=== PATIENT | female | born 1950 | race Hispanic/Latino ===

== ENCOUNTER → 2016-10-08 | Outpatient (CLI) | payer OTHER ==
[~2016-10-08] MED LIST: *PREMTA OR; /AUGM875TA PO; ANTI12.5 PO; CALTRATE OR; CERTIRIZINE PO; CETI10TA OR; CONRAY-43 43% 50ML VIAL (Q9960) As Ordered ONE; ESTR625TA PO; GLUC500T3 OR; HYDR25TA6 OR; HYDR25TA7 OR; IBUP800T OR; LISI10TA4 OR; LISI10TA4 PO; NASONEX; OMEP20TA7 OR; PAIN325T OR; PROV2.5T PO; PROZ20CA OR; SIMV20TA2 OR; [UNRECOGNIZED DRUG - OTHER]; caltrate PO
--- NOTE | 2016-10-08 18:16 | REP ---
RIGHT SHOULDER ARTHROGRAM: Procedure for MRI arthrogram. The patient was referred for MR arthrogram of the right shoulder. After initial MR images were performed, informed consent was obtained for the arthrogram procedure. Under sterile conditions and after satisfactory administration of local anesthesia, using fluoroscopic guidance, a 22-gauge spinal needle was placed into the right glenohumeral joint. Injection of a tiny amount of radiographic contrast confirms needle tip placement in the joint. Then a mixture of 20 mL of normal saline and 0.15 mL of gadolinium is injected for a total of 12 mL. The needle was removed and hemostasis obtained with no immediate complications. Further MR imaging was then performed. Signed by Andrew Ferreira MD 10/08/2016 06:32 P
--- NOTE | 2016-10-08 18:20 | REP ---
MRI RIGHT SHOULDER ARTHROGRAM WITHOUT WITH CONTRAST: 10/08/2016: Clinical history: Shoulder pain, chronic. Rule out rotator cuff tear. Technique: Axial fat suppressed T2, coronal T1 and fat-suppressed T2 with this gadolinium arthrogram injection by my colleague, Dr. Ferreira followed by fat suppressed T1 coronal and axial, fat suppressed T2 coronal and sagittal and an axial PD sequence provided. Comparison: Outside x-ray 12/11/2015. Findings: AC joint shows large spurs superiorly and small inferiorly. This abuts and slightly indents the musculotendinous junction of the rotator cuff. There is peripheral acromial spur. There is trace amount of subacromial and subdeltoid bursal fluid on the pre-arthrogram images. The coracoclavicular and the coracohumeral ligaments are intact. On the arthrogram injection images there is significant arthrogram contrast transiting the rotator cuff into the sub acromial and subdeltoid bursa rotator cuff tear is seen distally near its insertion. No footprint or a full-thickness tear of the anterior fibers with the posterior fibers showing significant tendinosis tendinopathy and undersurface high-grade partial tear. I do not see full retraction of the tendon and only mild atrophy of the muscle. The subscapularis muscle and tendon are grossly intact. The infraspinatus and teres minor tendons and muscles intact. Some hyperintensity and T2 precontrast signal suggest some significant synovitis/bursitis about the shoulder. I do not see a fracture. There is a small subchondral cyst greater tuberosity humeral head likely related to posterior impingement. Contrast extends in the subcoracoid bursa. The bony coracoid was intact. The glenoid labrum was grossly intact as well. Impression: 1. Severe tendinosis tendinopathy of the supraspinatus on the precontrast images with trace subacromial subdeltoid bursal fluid with large volume of contrast from the humeral joint arthrogram injection extends into those subacromial and subdeltoid bursal spaces. Through a partial tear, full-thickness anterior fibers of the supraspinatus tendon near its insertional footprint with a gap of a 7 mm. The more posterior fibers show significant tendinosis, tendinopathy and partial undersurface tear. Some atrophy of that muscle noted but without retraction of the tendon. 2. AC joint hypertrophy and more superior than inferior but with a small indentation musculotendinous junction rotator cuff from the inferior spur. 3. Some mild tendinopathy tendinosis of the subscapularis without a tear. The infraspinatus and teres minor tendons intact. The coracoclavicular and coracohumeral ligaments are intact. 4. The biceps tendon is seated in its groove and the labrum and biceps labrum and biceps labral complex are grossly intact. Signed by Moiz Nevarez MD 10/11/2016 08:19 A
== END ==
LOC: M RADPRO 06:50
DX: M65.811 Other synovitis and tenosynovitis, right shoulder (principal); M75.111 Incomplete rotator cuff tear or rupture of right shoulder, not specified as traumatic
CPT/HCPCS: 23350; 73223; 77002; A9576; Q9960

== ENCOUNTER 2017-01-26 05:42 | Inpatient (IN) | payer OTHER ==
[~2017-01-26] VITALS: Ht 154.9 cm; Wt 73.5 kg
[~2017-01-26 05:42] MED LIST changes: +ACEP325S PO; -CONRAY-43 43% 50ML VIAL (Q9960) As Ordered ONE; +GLUC1CAP10 PO; +HYZA50TA2 PO; +OMEP10CASR PO; +RANI1TAB38 PO; +SUCR1TA PO; +VITA100037 PO; +VITA100L PO; +ZYRT10CA PO
[2017-01-26] MEDS ORDERED: LR 1,000 ML IV SCH ×2 (06:00→11:45)
[2017-01-26] MEDS ORDERED: ACET-654 PO (06:29)
[2017-01-26] MEDS ORDERED: MIDAZOLAM INJ 2 MG/2 ML VIAL (J2250) As Ordered ONE ×3 (07:11→08:11)
[2017-01-26] MEDS ORDERED: fentaNYL 100 MCG/2 ML INJECTION (J3010) As Ordered ONE ×2 (07:11→07:17)
[2017-01-26] MEDS ORDERED: PROPOFOL 200 MG/20 ML VIAL As Ordered ONE ×2 (07:17→09:59)
[2017-01-26] MEDS ORDERED: LIDOCAINE 2% INJ 100 MG/5 ML SDV (FOR ANES.) As Ordered ONE (07:17)
[2017-01-26] MEDS ORDERED: TRANEXAMIC ACID 100 MG/ML 10ML VIAL As Ordered ONE (07:19)
[2017-01-26] MEDS ORDERED: BUPIVACAINE LIPOSOME/PF 1.3% 20 ML VIAL (13.3MG/ML)(EXPAREL) As Ordered ONE (07:19)
[2017-01-26] MEDS ORDERED: ceFAZolin 1GM INJ (J0690) As Ordered ONE (07:19)
[2017-01-26] MEDS ORDERED: MIDAZOLAM INJ 2 MG/2 ML VIAL (J2250) IV ONE (08:15)
[2017-01-26] MEDS ORDERED: fentaNYL 100 MCG/2 ML INJECTION (J3010) IV ONE (08:15)
[2017-01-26] MEDS ORDERED: ONDANSETRON 4MG/2ML VIAL (J2405) As Ordered ONE (08:46)
[2017-01-26] MEDS ORDERED: dexameTHASONE 4 MG/ML 1ML VIAL (J1100) As Ordered ONE (08:46)
[2017-01-26] MEDS ORDERED: KETOROLAC 30 MG/ML VIAL (J1885) As Ordered ONE (11:03)
[2017-01-26] MEDS ORDERED: FLEET ENEMA PR PRN (11:30)
[2017-01-26] MEDS ORDERED: ACETAMINOPHEN TAB 650MG DOSE (2X325MG) PO PRN (11:30)
[2017-01-26] MEDS ORDERED: PERCOCET 5MG/325MG TAB PO PRN ×2 (11:30→11:45)
[2017-01-26] MEDS ORDERED: METOCLOPRAMIDE INJ 10MG/2ML VIAL (J2765) IV PRN (11:45)
[2017-01-26] MEDS ORDERED: MORPHINE 2 MG/ML 1ML SYRINGE IV PRN (11:45)
[2017-01-26] MEDS ORDERED: ONDANSETRON 4MG/2ML VIAL (J2405) IV PRN (11:45)
[2017-01-26] MEDS: fentaNYL 100 MCG/2 ML INJECTION (J3010) IV PRN ×2 (11:53→11:58)
--- NOTE | 2017-01-26 12:22 | REP ---
Left knee two views portable study: There is a total knee arthroplasty with the components tightly applied and in satisfactory positions alignment. There are no radiopaque foreign bodies. Signed by Andrew Burns MD 01/26/2017 12:14 P
[2017-01-26] MEDS: PERCOCET 5MG/325MG TAB PO PRN ×2 (14:24→20:42)
--- NOTE | 2017-01-26 15:19 | RO ---
DATE OF PROCEDURE: 01/26/2017 PREPROCEDURE DIAGNOSIS: Left knee osteoarthritis. POSTPROCEDURE DIAGNOSIS: Left knee osteoarthritis. PROCEDURE PERFORMED: Left total knee arthroplasty. ANESTHESIA: Adductor canal block/single shot spinal SURGEON: Dr. Aleksey Harmon DRY HOUSE TENDER: MARCELA Dangelo ANTIBIOTICS: 2 gram Ancef given within one hour of incision. IMPLANTS USED: DePuy Sigma PFC, size 3 CR femur, size 2.5 fixed bearing tibia with 12.5 mm polyethylene with 32mm x 8mm patellar polyethelyene. DEEP VEIN THROMBOSIS PROPHYLAXIS: Sequential compression device (SCD) on nonoperative extremity. TOTAL TOURNIQUET TIME: 109 minutes at 250 mmHg, left thigh. MATERIALS SENT TO LAB: None. COMPLICATIONS: None. INDICATION FOR PROCEDURE: Chidi Khalil is a 66-year-old female with left knee osteoarthritis with varus deformity. The patient had previously pursued nonoperative treatment to include activity modification, maintenance of a healthy body weight, corticosteroid injections, medication therapy and exercise therapy and continued to have activity limiting knee pain despite all of these nonoperative measures. I discussed with the patient the risks, benefits, indications and alternatives of operative versus continued nonoperative management for knee osteoarthritis. The patient elected to proceed with left total knee arthroplasty. Informed consent was obtained. INTRAOPERATIVE FINDINGS: There was significant tricompartmental osteoarthritis of the left knee. The knee was stable after implant placement. DESCRIPTION OF PROCEDURE: The patient was positively identified in the preop holding area where the surgical site was marked. She was then given an adductor canal nerve block by the anesthesia service for postoperative pain control. She was then brought to the operating room where she was placed under spinal anesthesia and sedation. She was prepped and draped in the usual sterile fashion. A final time-out was performed. I made a 15 cm incision in the midline of the knee. I dissected through skin and subcutaneous tissue and identified the retinaculum and identified the quadriceps tendon and performed a medial parapatellar arthrotomy dissecting through the retinaculum and the anterior horn of the medial meniscus. After performing the medial parapatellar arthrotomy, I then performed a limited synovectomy of the anterior distal femur to aid in implant sizing. I then performed a medial release of the soft tissue of the tibia, finishing medial release with a 1 inch curved osteotome around the proximal and medial border of the tibia, protecting the MCL. I then excised part of the patellar fat pad and released the anterior horn of the lateral meniscus. I then brought the knee into flexion, everted the patella, and then resected the ACL. I then placed medial and lateral retractors to protect the MCL and LCL, respectively. I then drilled for the intramedullary drill guide for the femur using the standard drill. I then placed the intramedullary guide for the distal femoral cutting block. I confirmed that it was set to left knee 5 degrees valgus and a 10 mm distal cut. The block was then set flush to the distal femur and I then performed a standard distal femoral cut, confirming adequate depth. The distal femoral cutting block was then removed. I then placed the posterior referencing sizing guide onto the femur and measured a size 3. I then removed the sizing guide and placed my 4-in-1 cutting block for size 3 and then performed anterior , posterior, and chamfer cuts for the femur, maintaining adequate retraction of the MCL and LCL with Homans and Z retractors to protect the medial and lateral structures, respectively. I then placed the PCL retractor to the posterior tibia and then brought the tibia anteriorly and performed a recession of the PCL but keeping it intact, brought the tibia forward, and placed my extramedullary tibial guide in place for the tibial cut. I planned for a 4 mm cut off of the medial side. I then pinned the tibial block in place. I checked the alignment with an extramedullary drop herve prior to making the tibial cut. I then made the tibial cut, noting to be perpendicular to the long axis of the tibia with adequate posterior slope. At this point, I then checked the flexion gap. I removed the medial and lateral menisci and removed osteophytes from the posterior femur on the medial and lateral side. I noted the flexion gap was balanced. I then brought the knee into extension, checked the extension gap and noted it to also be balanced. I sized a polyethylene to a 12.5 mm thickness, noting excellent stability in flexion, extension and mid flexion. I then placed the tibial tray and polyethylene and floated the tibial tray and brought the knee through range of motion to identify optimal placement of the tibial component. The site was then marked. At this point, I set the rotation for the tibial tray, sized it to a 2.5. I then proceeded to the patellar cut. The patella was measured to approximately 25 mm. A 9 mm patellar resection was made. I then sized the patella to a 32 mm, which corresponded to an 8 mm polyethyelene thickness. The residual patella measured 15 mm in thickness, which confirmed that there would not be overstuffing the patella with an 8mm poly. Patellar trial was placed. Then using a no thumbs technique, the knee was brought in through a range of motion, noting excellent tracking of the patella. The trial polyethylene was removed. Femoral trial was removed after drilling the lug holes for the final implant. I then prepared the proximal tibia by putting the trial in place and drilling for the keel. After preparation of the tibia, all the trial components were removed. The knee was thoroughly irrigated with normal saline to clear any blood from the cancellus bone. Afterwards, the final tibial implant was implanted, followed by the polyethylene. This was then followed by implant of the femoral component, and the patellar component. All excess cement was cleared from the periphery of the components. Any residual osteophytes were removed. The knee was brought into extension to allow the cement to cure. After curing of the cement, I then placed 2 grams of topical TXA into the wound, followed by 10 mL of Exparel into the periosteum, the femur and distal tibia. I then closed the retinaculum with some interrupted #0 Vicryl suture followed by a STRATAFIX barbed suture to close the retinaculum. It was noted to have water tight closure with closure done with the knee in approximately 45 degrees of flexion. The tourniquet was let down at this point, 109 minutes. Noted excellent hemostasis. I then closed the superficial fascia with #2-0 Vicryl interrupted subcutaneous sutures and then running #4-0 Monocryl for the skin, followed by Dermabond Prineo dressing for the skin. Sterile dressings were applied after the Dermabond dried. This ended the procedure. I was present and scrubbed in for all portions of the case. POSTOPERATIVE PLAN: The patient will have postoperative x-rays. She will be admitted to the hospital for postoperative physical therapy (PT). She will be weight bearing as tolerated. She will discharge home when all criteria met. CLAUDETTE
[2017-01-26] MEDS: ceFAZolin SOD 1 GM in D5W MINI-BAG PLUS 50 ML IV SCH ×2 (16:28→23:47)
[2017-01-26] MEDS: KETOROLAC 30 MG/ML VIAL (J1885) IV SCH ×2 (16:28→23:48)
[2017-01-26] MEDS ORDERED: KETOROLAC 30 MG/ML VIAL (J1885) IV SCH (17:00)
[2017-01-26 22:00] VITALS: BP 121/72
[2017-01-27] MEDS: KETOROLAC 30 MG/ML VIAL (J1885) IV SCH ×2 (04:25→10:39)
[2017-01-27 06:00] VITALS: BP 112/57
[2017-01-27 07:38] LABS: MEAN CORPUSCULAR HEMOGLOBIN 30.2 pg (27.0-33.0); MEAN CORPUSCULAR HGB CONC 33.6 g/dl (32.0-36.5); MEAN CORPUSCULAR VOLUME 89.7 fl (80.0-96.0); RED CELL DISTRIBUTION WIDTH 12.2 % (11.5-14.5)
[2017-01-27 07:45] LABS: INR 1.06
[2017-01-27] MEDS: ceFAZolin SOD 1 GM in D5W MINI-BAG PLUS 50 ML IV SCH (07:48)
[2017-01-27] MEDS: PERCOCET 5MG/325MG TAB PO PRN (07:54)
[2017-01-27] MEDS: OMEPRAZOLE 20 MG CAP PO SCH (07:55)
[2017-01-27] MEDS: ENOXAPARIN 40 MG/0.4 ML SYRINGE (J1650) SC SCH (07:55)
[2017-01-27] MEDS: MIRALAX *UNIT DOSE* 17GM PACKET PO SCH (09:00)
[2017-01-27] MEDS ORDERED: dexameTHASONE 10 MG/1 ML VIAL PRES.FREE (J1100) ONE (09:44)
[2017-01-27] MEDS ORDERED: ROPIvacaine 0.5% 30 ML INJECTION (J2795) ONE (09:44)
[2017-01-27] MEDS: hydroCHLOROthiazide 12.5 MG CAPSULE PO SCH (10:38)
[2017-01-27] MEDS: LOSARTAN 50 MG TAB PO SCH (10:39)
[2017-01-27] MEDS: MOM 30ML SUSPENSION UDC PO SCH (10:39)
[2017-01-27] MEDS: ONDANSETRON 4 MG ORAL DISINTEGRATING TAB (S0181) PO PRN ×2 (14:14→19:56)
[2017-01-27] MEDS: oxyCODONE 5MG TAB PO PRN (18:15)
[2017-01-27] MEDS: traMADol 50 MG TAB PO PRN (19:56)
[2017-01-27] MEDS: CelecoXIB (CeleBREX) 100 MG CAP PO SCH (19:57)
[2017-01-27] MEDS ORDERED: traMADol 50 MG TAB PO PRN (20:00)
[2017-01-27 22:00] VITALS: BP 152/76
[2017-01-28] MEDS: oxyCODONE 5MG TAB PO PRN ×2 (00:16→08:25)
[2017-01-28] MEDS: traMADol 50 MG TAB PO PRN (04:53)
[2017-01-28 06:00] VITALS: BP 144/71
[2017-01-28 08:24] VITALS: BP 144/71
[2017-01-28] MEDS: MIRALAX *UNIT DOSE* 17GM PACKET PO SCH (08:24)
[2017-01-28] MEDS: ENOXAPARIN 40 MG/0.4 ML SYRINGE (J1650) SC SCH (08:24)
[2017-01-28] MEDS: OMEPRAZOLE 20 MG CAP PO SCH (08:24)
[2017-01-28] MEDS: LOSARTAN 50 MG TAB PO SCH (08:24)
[2017-01-28] MEDS: MOM 30ML SUSPENSION UDC PO SCH (08:24)
[2017-01-28] MEDS: CelecoXIB (CeleBREX) 100 MG CAP PO SCH (08:25)
[2017-01-28] MEDS: hydroCHLOROthiazide 12.5 MG CAPSULE PO SCH (08:25)
--- NOTE | 2017-02-03 19:30 | DSES ---
DATE OF ADMISSION: 01/26/2017 DATE OF DISCHARGE: 01/28/2017 ATTENDING PHYSICIAN: Dr. Harmon. ADMITTING DIAGNOSIS: Left knee degenerative arthritis. OTHER DIAGNOSES: 1. Hypertension. 2. Hyperlipidemia. 3. Gastroesophageal reflux disease. 4. Asthma. 5. Obesity. 6. Depression. DISCHARGE DIAGNOSIS: Left knee degenerative osteoarthritis status post left total knee arthroplasty. HISTORY OF PRESENT ILLNESS: Patient is a 66-year-old female with continuing left knee pain and stiffness. She failed to improve with conservative measures, so she consented for an elective left total knee arthroplasty with Dr. Harmon. OPERATION PERFORMED: Left total knee arthroplasty. HOSPITAL COURSE: The patient underwent a left total knee arthroplasty under spinal anesthesia which was uneventful. Her hospital course was without complication and she was up with physical therapy per their protocol, weightbearing as tolerated on the left lower extremity. She was discharged on oral pain medications and will resume her preoperative medications and diet. She will take Coumadin and use her thromboembolic deterrent stockings for 30 days postoperatively to prevent deep venous thrombosis. She will followup in our office in approximately 12-14 days for a wound check and staple removal. She is encouraged to contact our office sooner if there is any increased pain, drainage , bleeding, redness, numbness or tingling in her leg, fever greater than 101 degrees, or any other concerns. Please see her medical record for additional details. CLAUDETTE
== END 2017-01-28 13:07 | disposition home or self-care (01) | DRG 470 ==
LOC: UNDOADMIN 05:42 → M OR 05:42 → EDSTATUS 09:15 → M MS5PR 12:25
PROVIDERS: ADMIT Orthopaedic Surgery; ATTEND Orthopaedic Surgery
PROC: 0SRD0J9 Replacement of Left Knee Joint with Synthetic Substitute, Cemented, Open Approach (ICD-10-PCS; principal; 2017-01-26 07:30)
DX: M17.12 Unilateral primary osteoarthritis, left knee (principal)

== ENCOUNTER → 2017-04-20 | Outpatient (CLI) | payer OTHER ==
[~2017-04-20] MED LIST changes: +ACET1TAB17 PO; -VITA100037 PO; +VITA100067 PO
--- NOTE | 2017-04-20 13:32 | REPMRS ---
Patient History The patient states she has not had a clinical breast exam in over a year. Patient is postmenopausal. Family history of ovarian cancer in sister under age 50 and colorectal cancer in paternal cousin at age 50 or over. Digital Woman Screen Mammo: April 20, 2017 - Exam #: [id number] Bilateral CC and MLO view(s) were taken. Technologist: Indira Lopez, Technologist Prior study comparison: April 19, 2016, digital woman screen mammo performed at [facility]. April 16, 2015, digital woman screen mammo performed at [facility]. April 15, 2014, digital woman screen mammo performed at [facility]. FINDINGS: There are scattered fibroglandular densities. There has been no change in the appearance of the mammogram from the prior studies. There is a mild amount of scattered fibroglandular density which is fairly symmetric. There is no interval development of dominant mass, architectural distortion, or clustered microcalcification suggestive of malignancy. ASSESSMENT: BI-RADS/ACR category 1 mammogram. Negative. Recommendation Routine screening mammogram in 1 year (for women over age 40). This mammogram was interpreted with the aid of an FDA-approved computer-aided dectection system. Electronically Signed By: Conrad Henley MD 04/20/17 [id number]
== END ==
LOC: M WHC 12:46
PROVIDERS: ATTEND Family Medicine
DX: Z12.31 Encounter for screening mammogram for malignant neoplasm of breast (principal); Z78.0 Asymptomatic menopausal state

== ENCOUNTER 2017-05-06 08:06 | Outpatient (CLI) | payer OTHER ==
[~2017-05-06] VITALS: Ht 154.9 cm; Wt 70.8 kg
[2017-05-06] MEDS ORDERED: NS 1,000 ML IV ONE (09:00)
[2017-05-06] MEDS ORDERED: PROPOFOL 200 MG/20 ML VIAL As Ordered ONE (09:26)
--- NOTE | 2017-05-06 09:48 | ROOR ---
Patient Name: Chidi Khalil Procedure Date: 05/06/2017 9:25 AM Date of : 1950 Age: 66 Room: [facility] Gender: Female Note Status: Finalized Procedure: Colonoscopy Indications: High risk colon cancer surveillance: Personal history of colonic polyps, Last colonoscopy: March 2014 Providers: Dick OSBORNE MD Referring MD: CARLY CARROLL MD Requesting Provider: Medicines: Monitored Anesthesia Care Complications: No immediate complications. Procedure: Pre-Anesthesia Assessment: - The heart rate, respiratory rate, oxygen saturations, blood pressure, adequacy of pulmonary ventilation, and response to care were monitored throughout the procedure. The Colonoscope was introduced through the anus and advanced to the cecum, identified by appendiceal orifice and ileocecal valve. The colonoscopy was performed without difficulty. The patient tolerated the procedure well. The quality of the bowel preparation was good. Findings: The perianal and digital rectal examinations were normal. Four sessile polyps were found in the hepatic flexure and distal ascending colon. The polyps were 3 to 4 mm in size. These polyps were removed with a cold snare. Resection and retrieval were complete. Multiple small-mouthed diverticula were found in the sigmoid colon. There was evidence of diverticular spasm. Small Internal Hemorrhoids. The exam was otherwise without abnormality on direct and retroflexion views. Impression: - Four 3 to 4 mm polyps at the hepatic flexure and in the distal ascending colon, removed with a cold snare. Resected and retrieved. - Moderate diverticulosis in the sigmoid colon. There was evidence of diverticular spasm. - Small Internal Hemorrhoids. - The examination was otherwise normal on direct and retroflexion views. Recommendation: - Await pathology results. - If the pathology report reveals adenomatous tissue, then repeat the colonoscopy for surveillance in 3 years. - If the pathology report indicates hyperplastic polyp, then repeat colonoscopy for surveillance in 5 years. - Telephone endoscopist for pathology results in 2 weeks. Dick Osborne MD Dick OSBORNE MD 05/06/2017 9:48:34 AM This report has been signed electronically. Number of Addenda: 0 Note Initiated On: 05/06/2017 9:25 AM Estimated Blood Loss: Estimated blood loss: none.
[2017-05-06 10:10] VITALS: BP 122/65
== END 2017-05-06 10:17 | disposition home or self-care (01) ==
LOC: M OPP 08:06
PROVIDERS: ATTEND Internal Medicine Gastroenterology
DX: Z12.11 Encounter for screening for malignant neoplasm of colon (principal); Z86.010 Personal history of colon polyps; D12.3 Benign neoplasm of transverse colon; D12.2 Benign neoplasm of ascending colon; K57.30 Diverticulosis of large intestine without perforation or abscess without bleeding; K64.8 Other hemorrhoids; K21.9 Gastro-esophageal reflux disease without esophagitis; I10 Essential (primary) hypertension; E78.5 Hyperlipidemia, unspecified; R12 Heartburn; M19.90 Unspecified osteoarthritis, unspecified site; M25.60 Stiffness of unspecified joint, not elsewhere classified; Z96.652 Presence of left artificial knee joint; F32.9 Major depressive disorder, single episode, unspecified; G43.909 Migraine, unspecified, not intractable, without status migrainosus; J45.909 Unspecified asthma, uncomplicated; Z79.899 Other long term (current) drug therapy; Z80.0 Family history of malignant neoplasm of digestive organs

== ENCOUNTER 2018-11-12 13:37 | Emergency (ER) | payer MEDICARE, OTHER ==
[~2018-11-12] VITALS: Ht 154.9 cm; Wt 77.4 kg
[~2018-11-12 13:37] MED LIST changes: -ACET1TAB17 PO; +ACET1TAB55 PO
[2018-11-12] MEDS ORDERED: FLON1SPR NARES (14:36)
[2018-11-12] MEDS ORDERED: AUGM875T28 PO (14:36)
[2018-11-12 14:42] VITALS: BP 126/65
[2018-11-12] MEDS ORDERED: AUGMENTIN 875 MG TAB PO ONE (14:45)
[2018-11-12 15:02] LABS: INFLUENZA A AMPLIFICATION POSITIVE (NEGATIVE); INFLUENZA B AMPLIFICATION NEGATIVE (NEGATIVE)
== END 2018-11-12 14:43 | disposition home or self-care (01) ==
LOC: M ED 13:37
DX: J31.0 Chronic rhinitis (principal); I10 Essential (primary) hypertension; F32.9 Major depressive disorder, single episode, unspecified; Z79.899 Other long term (current) drug therapy

== ENCOUNTER → 2020-03-07 | Outpatient (CLI) | payer MEDICARE, OTHER ==
[~2020-03-07] MED LIST changes: +AUGM875T28 PO; +FLON1SPR NARES
--- NOTE | 2020-03-07 13:14 | REPMRS ---
Patient History The patient states she had a clinical breast exam in January 2020.Family history of ovarian cancer under age 50 in sister, colorectal cancer at age 50 or over in paternal cousin. 3D TOMOSYNTHESIS WAS PERFORMED. [facility] lifetime risk for breast cancer is 6.6%. NATAN ZAMORA B. Digital Woman Screen Mammo: March 07, 2020 - Exam #: [id number] Bilateral CC and MLO view(s) were taken. Technologist: Lanny Yadav, Technologist Prior study comparison: April 21, 2018, bilateral digital woman screen mammo performed at [facility]. April 20, 2017, digital woman screen mammo performed at [facility]. FINDINGS: The breast tissue is heterogeneously dense. This may lower the sensitivity of mammography. There has been no change in the appearance of the mammogram from the prior studies. There is a moderate amount of residual fibroglandular tissue which is fairly symmetric. There is no interval development of dominant mass, areas of architectural distortion, or clustered microcalcification typical of malignancy. Assessment: BI-RADS/ACR category 1 mammogram. Negative Mammogram. Recommendation Routine screening mammogram in 1 year (for women over age 40). This mammogram was interpreted with the aid of an FDA-approved computer-aided dectection system. Electronically Signed By: Andrew Ferreira MD 03/07/20 [id number]
== END ==
LOC: M WHC 11:13
PROVIDERS: ATTEND Family Medicine
DX: Z12.31 Encounter for screening mammogram for malignant neoplasm of breast (principal); Z80.41 Family history of malignant neoplasm of ovary

== ENCOUNTER → 2021-01-15 | Outpatient (CLI) | payer MEDICARE, OTHER ==
[~2021-01-15] MED LIST changes: +CETI10CH PO; +D31000TA2 PO; +FISH1000 PO; +HYDR12.55 PO; +IBUP1TAB6 PO; +LOSA50TA88 PO; +PANT40TA29 PO; +PROV108A INH; +VITATAB73 PO
== END ==
LOC: M LABSMTC 11:09
PROVIDERS: ATTEND Anesthesiology
DX: Z01.812 Encounter for preprocedural laboratory examination (principal)

== ENCOUNTER 2021-01-20 09:00 | Day surgery (SDC) | payer MEDICARE, OTHER ==
[~2021-01-20] VITALS: Ht 154.9 cm; Wt 67.6 kg
[~2021-01-20 09:00] MED LIST changes: +NS 1,000 ML IV ONE
[2021-01-20] MEDS ORDERED: fentaNYL 100 MCG/2 ML INJECTION (J3010) As Ordered ONE (10:14)
[2021-01-20] MEDS ORDERED: propofoL 200 MG/20 ML VIAL As Ordered ONE ×2 (10:14→10:57)
[2021-01-20] MEDS ORDERED: LIDOCAINE 2% 100MG/5ML SDV (FOR ANES.) As Ordered ONE (10:14)
--- NOTE | 2021-01-20 10:35 | ROOR ---
Patient Name: Chidi Khalil Procedure Date: 01/20/2021 10:23 AM Date of : 1950 Age: 70 Room: [facility] Gender: Female Note Status: Finalized Procedure: Upper GI endoscopy Indications: Dysphagia, Heartburn Providers: Dick Osborne MD Referring MD: CARLY CARROLL MD Requesting Provider: Medicines: Monitored Anesthesia Care Complications: No immediate complications. Procedure: Pre-Anesthesia Assessment: - The heart rate, respiratory rate, oxygen saturations, blood pressure, adequacy of pulmonary ventilation, and response to care were monitored throughout the procedure. The Endoscope was introduced through the mouth, and advanced to the second part of duodenum. The upper GI endoscopy was accomplished without difficulty. The patient tolerated the procedure well. Findings: The esophagus was normal. The stomach was normal. The examined duodenum was normal. Impression: - Normal esophagus. - Normal stomach. - Normal examined duodenum. - No specimens collected. Recommendation: - Continue present medications. - Observe patient's clinical course. - Follow an antireflux regimen. Procedure Code(s): --- Professional --- 17167, Esophagogastroduodenoscopy, flexible, transoral; diagnostic, including collection of specimen(s) by brushing or washing, when performed (separate procedure) Diagnosis Code(s): --- Professional --- R12, Heartburn R13.10, Dysphagia, unspecified CPT copyright 2019 [employer]. All rights reserved. The codes documented in this report are preliminary and upon breaker machine operator review may be revised to meet current compliance requirements. Dick Osborne MD Dick Osborne MD 01/20/2021 10:34:38 AM Electronically signed by Dick Osborne MD Number of Addenda: 0 Note Initiated On: 01/20/2021 10:23 AM Estimated Blood Loss: Estimated blood loss: none.
--- NOTE | 2021-01-20 11:05 | ROOR ---
Patient Name: Chidi Khalil Procedure Date: 01/20/2021 10:24 AM Date of : 1950 Age: 70 Room: [facility] Gender: Female Note Status: Finalized Procedure: Colonoscopy Indications: High risk colon cancer surveillance: Personal history of colonic polyps/serrated adenoma Providers: Dick Osborne MD Referring MD: CARLY CARROLL MD Requesting Provider: Medicines: Monitored Anesthesia Care Complications: No immediate complications. Procedure: Pre-Anesthesia Assessment: - The heart rate, respiratory rate, oxygen saturations, blood pressure, adequacy of pulmonary ventilation, and response to care were monitored throughout the procedure. The Colonoscope was introduced through the anus and advanced to the terminal ileum, with identification of the appendiceal orifice and IC valve. The colonoscopy was performed without difficulty. The patient tolerated the procedure well. The quality of the bowel preparation was good. Findings: The perianal and digital rectal examinations were normal. Five flat polyps were found in the hepatic flexure and ascending colon. The polyps were diminutive in size. These polyps were removed with a cold snare. Resection and retrieval were complete. Multiple small and large-mouthed diverticula were found in the sigmoid colon and descending colon. Internal hemorrhoids were found during retroflexion. The hemorrhoids were medium-sized. Impression: - Five diminutive polyps at the hepatic flexure and in the ascending colon, removed with a cold snare. Resected and retrieved. - Moderate diverticulosis in the sigmoid colon and in the descending colon. - Internal hemorrhoids. - The exam was otherwise normal to the cecum. Recommendation: - Telephone endoscopist for pathology results in 2 weeks. - If the pathology report reveals adenomatous tissue, then repeat the colonoscopy for surveillance in 3 years. - If the pathology report indicates hyperplastic polyp, then repeat colonoscopy for adenoma surveillance in 5 years. Procedure Code(s): --- Professional --- 57780, Colonoscopy, flexible; with removal of tumor(s), polyp(s), or other lesion(s) by snare technique Diagnosis Code(s): --- Professional --- K57.30, Diverticulosis of large intestine without perforation or abscess without bleeding K64.8, Other hemorrhoids K63.5, Polyp of colon Z86.010, Personal history of colonic polyps CPT copyright 2019 [employer]. All rights reserved. The codes documented in this report are preliminary and upon cinder crane operator review may be revised to meet current compliance requirements. Dick Osborne MD Dick Osborne MD 01/20/2021 11:05:01 AM Electronically signed by Dick Osborne MD Number of Addenda: 0 Note Initiated On: 01/20/2021 10:24 AM Estimated Blood Loss: Estimated blood loss: none.
[2021-01-20 11:39] VITALS: BP 130/79
== END 2021-01-20 11:40 | disposition home or self-care (01) ==
LOC: M OPP 09:00
PROVIDERS: ATTEND Internal Medicine Gastroenterology
DX: Z86.010 Personal history of colon polyps (principal); R13.10 Dysphagia, unspecified; R12 Heartburn; K63.5 Polyp of colon; K57.30 Diverticulosis of large intestine without perforation or abscess without bleeding; K64.8 Other hemorrhoids; I10 Essential (primary) hypertension; M19.90 Unspecified osteoarthritis, unspecified site; D32.9 Benign neoplasm of meninges, unspecified; J45.909 Unspecified asthma, uncomplicated; Z79.899 Other long term (current) drug therapy; Z80.8 Family history of malignant neoplasm of other organs or systems
CPT/HCPCS: 43235; 45385; 88305; J3010

== ENCOUNTER → 2022-01-22 | Outpatient (CLI) | payer MEDICARE, OTHER ==
[~2022-01-22] MED LIST changes: -D31000TA2 PO; +LOSA50TA28 PO; -LOSA50TA88 PO; -NS 1,000 ML IV ONE; +VITA100093 PO
== END ==
LOC: M SOG 09:05
PROVIDERS: ATTEND Orthopaedic Surgery Adult Reconstructive Orthopaedic Surgery
DX: M17.11 Unilateral primary osteoarthritis, right knee (principal)

== ENCOUNTER → 2022-03-12 | Outpatient (CLI) | payer MEDICARE, OTHER | LOC: M WHC 12:42 | PROVIDERS: ATTEND Nurse Practitioner Family | DX: Z12.31 Encounter for screening mammogram for malignant neoplasm of breast (principal) ==

== ENCOUNTER 2022-07-25 07:22 | Emergency (ER) | payer MEDICARE, OTHER ==
[~2022-07-25] VITALS: Ht 154.9 cm; Wt 68.8 kg
[~2022-07-25 07:22] MED LIST changes: +ALBU6.7H6 INH; -HYZA50TA2 PO; +LOSA-532 PO; -PROV108A INH
[2022-07-25] MEDS ORDERED: MUCI600T31 (07:34)
[2022-07-25] MEDS ORDERED: SALI0.652 (07:34)
[2022-07-25] MEDS ORDERED: OMEP40CA5 PO (07:35)
[2022-07-25] MEDS ORDERED: B-122500 PO (07:35)
[2022-07-25] MEDS ORDERED: predniSONE 20 MG TAB PO ONE (08:15)
[2022-07-25] MEDS ORDERED: ACETAMINOPHEN 500 MG TAB PO ONE (08:15)
[2022-07-25] MEDS: COMBIVENT RESPIMAT 100-20MCG INHALER 4GM INH SCH ×3 (08:24→08:58)
[2022-07-25] MEDS ORDERED: PRED20TA PO (08:28)
[2022-07-25] MEDS ORDERED: ALBU6.7H6 INH (08:42)
[2022-07-25 09:25] VITALS: BP 135/70
== END 2022-07-25 09:30 | disposition home or self-care (01) ==
LOC: M ED 07:22
DX: J45.909 Unspecified asthma, uncomplicated (principal); B97.4 Respiratory syncytial virus as the cause of diseases classified elsewhere; I10 Essential (primary) hypertension; Z79.51 Long term (current) use of inhaled steroids; Z79.811 Long term (current) use of aromatase inhibitors; Z79.899 Other long term (current) drug therapy
CPT/HCPCS: 71046; 87486; 87581; 87633; 87798; 94640; 99283; J7512

== ENCOUNTER → 2023-01-21 | Outpatient (CLI) | payer MEDICARE, OTHER ==
[~2023-01-21] MED LIST changes: +B-122500 PO; +MUCI600T31; +OMEP40CA5 PO; +PRED20TA PO; +SALI0.652
== END ==
LOC: M SOG 08:19
PROVIDERS: ATTEND Orthopaedic Surgery
DX: M17.11 Unilateral primary osteoarthritis, right knee (principal)

== ENCOUNTER → 2023-08-24 | Outpatient (CLI) | payer MEDICARE, OTHER | LOC: M SOG 08:06 | PROVIDERS: ATTEND Orthopaedic Surgery | DX: M17.11 Unilateral primary osteoarthritis, right knee (principal) ==

== ENCOUNTER → 2024-02-22 | Outpatient (CLI) | payer MEDICARE, OTHER | LOC: M SOG 07:56 | PROVIDERS: ATTEND Orthopaedic Surgery | DX: M17.11 Unilateral primary osteoarthritis, right knee (principal); M85.862 Other specified disorders of bone density and structure, left lower leg ==

== ENCOUNTER 2024-05-21 10:36 | Day surgery (SDC) | payer MEDICARE, OTHER ==
[~2024-05-21] VITALS: Ht 154.9 cm; Wt 66.7 kg
[~2024-05-21 10:36] MED LIST changes: +ADVA115A INH; +B-12100010 PO; +LORA-1041 PO; +MELA5CAP2 PO; +NS 1,000 ML IV ONE; +OMEG10002 PO; +RA M500C PO; +VENTAER INH
[2024-05-21] MEDS ORDERED: fentaNYL 100 MCG/2 ML INJECTION As Ordered ONE (12:26)
[2024-05-21] MEDS ORDERED: propofoL 200 MG/20 ML VIAL As Ordered ONE (12:28)
[2024-05-21 13:14] VITALS: BP 122/68; O2SAT 100
== END 2024-05-21 13:26 | disposition home or self-care (01) ==
LOC: M OPP 10:36
PROVIDERS: ATTEND Internal Medicine Gastroenterology
DX: Z86.010 Personal history of colon polyps (principal); D13.2 Benign neoplasm of duodenum; K57.30 Diverticulosis of large intestine without perforation or abscess without bleeding; K64.8 Other hemorrhoids; R12 Heartburn; I10 Essential (primary) hypertension; M19.90 Unspecified osteoarthritis, unspecified site; J45.909 Unspecified asthma, uncomplicated; K21.9 Gastro-esophageal reflux disease without esophagitis; Z79.51 Long term (current) use of inhaled steroids; Z79.899 Other long term (current) drug therapy
CPT/HCPCS: 43251; 45385; 88305; J3010

== ENCOUNTER → 2025-05-02 | Outpatient (CLI) | payer MEDICARE, OTHER ==
[~2025-05-02] MED LIST changes: -IBUP1TAB6 PO; -NS 1,000 ML IV ONE; +SFHIBU600 PO
== END ==
LOC: M SOG 07:28
PROVIDERS: ATTEND Orthopaedic Surgery
DX: M17.11 Unilateral primary osteoarthritis, right knee (principal); Z47.1 Aftercare following joint replacement surgery